=== PATIENT | male | born 1945 | race African-American/Black ===

== ENCOUNTER 2019-08-08 05:03 | Day surgery (SDC) ==
--- NOTE | 2019-08-02 09:08 | EKG Report ---
Test Performed on : 08/02/2019 09:00:56 AM Test Reason : PAT Blood Pressure : / mmHG Vent. Rate : 057 BPM Atrial Rate : 057 BPM P-R Int : 192 ms QRS Dur : 092 ms QT Int : 428 ms P-R-T Axes : 021 -19 002 degrees QTc Int : 416 ms Sinus bradycardia. Left ventricular hypertrophy with repolarization abnormality Abnormal ECG When compared with ECG of 12-MAR-2018 02:19, No significant change was found Confirmed by Gaetano KRUEGER, P.J.M ([id number]) on 08/03/2019 3:09:16 PM
[2019-08-02 09:17] LABS: HEMATOCRIT 44.2 % (42.0-52.0); HEMOGLOBIN 13.5 g/dL (14.0-18.0); MCH 23.4 PG (27-31); MCHC 30.5 g/dL (33-37); MCV 76.5 FL (81-99); MPV 9.2 FL (7.4-10.4); RBC 5.78 XMIL (4.7-6.1); RDW 13.9 % (11.5-14.5); WBC 6.96 X1000 (4.8-10.8)
[2019-08-02 09:59] LABS: AGAP 13; BUN 11 mg/dL (8-22); CALCIUM 9.6 mg/dL (8.8-10.2); CHLORIDE 104 mmol/L (98-107); COSMO 284; ESTIMATED GFR > 60; GLUCOSE 100 mg/dL (70-104); POTASSIUM 3.6 mmol/L (3.5-5.1); SODIUM 143 mmol/L (136-145); TCO2 26 mmol/L (25-35)
[2019-08-08] MEDS ORDERED: KEFZOL 1 GM/D5W 2 GM/100 ML IVPB ONE (05:35)
[2019-08-08] MEDS ORDERED: LR 1,000 ML ONE ×2 (05:35→06:39)
[2019-08-08] MEDS ORDERED: STERILE WATER INJ. ONE (06:29)
[2019-08-08] MEDS ORDERED: ROBINUL ONE ×2 (06:29→07:17)
[2019-08-08] MEDS ORDERED: QUELICIN (DOSE) ONE (06:29)
[2019-08-08] MEDS ORDERED: XYLOCAINE-MPF 2% ONE (06:29)
[2019-08-08] MEDS ORDERED: NORCURON ONE (06:29)
[2019-08-08] MEDS ORDERED: DIPRIVAN 1% ONE (06:30)
[2019-08-08] MEDS ORDERED: FENTANYL ONE (06:31)
[2019-08-08] MEDS ORDERED: MARCAINE 0.25% PF/EPI 1:200,000 ONE (06:39)
[2019-08-08] MEDS ORDERED: DECADRON ONE (07:17)
[2019-08-08] MEDS ORDERED: OFIRMEV 1000 MG/ISOTONIC SOLN 1,000 MG/100 ML BOTTLE ONE (07:17)
[2019-08-08] MEDS ORDERED: ZOFRAN ONE (07:17)
[2019-08-08] MEDS ORDERED: NIMBEX ONE (07:32)
[2019-08-08 08:06] LABS: URINE SOURCE CATH
[2019-08-08 08:10] LABS: BILIRUBIN URINE NEGATIVE (NEGATIVE); BLOOD URINE NEGATIVE (NEGATIVE); COLOR STRAW; GLUCOSE URINE NEGATIVE (NEGATIVE); KETONE URINE NEGATIVE (NEGATIVE); LEUKOCYTES URINE NEGATIVE (NEGATIVE); NITRITE URINE NEGATIVE (NEGATIVE); PH URINE 7.5; PROTEIN URINE NEGATIVE (NEGATIVE); SP GRAVITY URINE 1.011; TURBIDITY URINE CLEAR (CLEAR); UROBILINOGEN URINE NORMAL (NORMAL)
[2019-08-08 08:12] LABS: UR EPITHELIAL CELLS <10 /HPF (<10); URINE BACTERIA NEGATIVE /HPF; URINE RBC <10 /HPF (<10); URINE WBC <10 /HPF (<10)
[2019-08-08] MEDS ORDERED: MANNITOL ONE (10:05)
[2019-08-08] MEDS ORDERED: ALBUMIN 25% ONE (10:27)
[2019-08-08] MEDS ORDERED: NEOSTIGMINE ONE (10:41)
[2019-08-08 11:56] LABS: HEMATOCRIT 39.1 % (42.0-52.0)
[2019-08-08] MEDS ORDERED: MORPHINE IV PRN (12:53)
[2019-08-08] MEDS ORDERED: OXY IR PO PRN (13:00)
[2019-08-08] MEDS ORDERED: PHENERGAN PO PRN (13:00)
[2019-08-08] MEDS ORDERED: BENADRYL LIQUID PO PRN (13:00)
[2019-08-08] MEDS: LR 1,000 ML IV SCH (13:00)
[2019-08-08] MEDS ORDERED: OFIRMEV 1000 MG/ISOTONIC SOLN 1,000 MG/100 ML BOTTLE IV PRN (13:00)
--- NOTE | 2019-08-08 14:54 | OPERATIVE NOTE ---
PROCEDURE DATE: 08/08/2019 SURGEON: Bhanu Ruvalcaba M.D. PREOPERATIVE DIAGNOSIS: Right lower pole renal mass. POSTOPERATIVE DIAGNOSIS: Right lower pole renal mass. PROCEDURE PERFORMED: Laparoscopic robot-assisted right partial nephrectomy and intraoperative ultrasound of the right lower pole kidney. ANESTHESIA: General endotracheal. FINDINGS: Intraoperative ultrasound revealed an approximately 2.5 to 3 cm mixed echogenic mass in the right lower pole kidney, anteromedially located, consistent with the findings on his preoperative CT scan. COMPLICATIONS: The small bowel had a small Bovie burn, less than 3 mm in length. General surgeon reviewed it and placed a 3-0 silk suture, [id number], imbricating the cauterized ends over each other. INDICATION FOR PROCEDURE: This 73-year-old male had abdominal pain. Evaluation revealed a right lower pole renal mass. DESCRIPTION OF PROCEDURE: After informed consent was obtained from the patient and him receiving IV antibiotics, he was taken to the main OR, placed in the supine position. General endotracheal anesthesia was achieved. He was then placed with the right side bumped up to about 30 degrees, and fixed to the table with his left leg flexed at the knee, and the right leg well padded, going over the left leg. The table was flexed to about 15 degrees. A 16-Occitan Knapp catheter was passed through the patient's urethra, prostate, and into the bladder. Then, 10 mL of sterile water was placed in the Knapp's balloon. The efflux was clear. He was then prepped and draped in the usual sterile fashion for right flank and abdominal surgery. An incision was made approximately 4 fingerbreadths above the umbilicus in the midline. Traumatic towel clamps were used to pull up the skin, and a Veress needle was passed through the subcutaneous tissue and fascia, and into the abdomen. It was verified in correct position by the water drop test. Pneumoperitoneum was achieved with CO2 to 15 cm of water pressure. After pneumoperitoneum was achieved, a camera was placed using the [employer]. After the camera was placed, the robot trocars were placed with the #1 arm just below the costal margin in the midclavicular line. The #2 arm was placed in the midclavicular line about 1 handbreadth below the umbilicus. The office clerk assistant port was placed 1 fingerbreadth below the umbilicus, and the fourth arm was placed just above the anterior superior iliac spine. The patient was rotated such that he was about 60 degrees up with the horizon. The robot was docked. The procedure was started by taking down the ascending colon along the white line of Toldt, and reflected medially. It was then that it was noted that the small bowel had a small Bovie burn that was visualized by the general surgeon, and he put 1 single [id number] suture of 3-0 silk over it. The duodenum was Kocherized, and the vena cava was visualized. The renal vein and then the renal artery were visualized, bluntly dissected free, and encircled with vessel loops. The perirenal fat was removed from the lower pole kidney. It was very adherent to the capsule, but was completely dissected away on the anterior, medial, and posterior surface of the kidney. The Alpha 10 ProSound ultrasound machine with the 7.5 megahertz drop-in probe was used to image the lower pole of the kidney that revealed the 2.5 x 3 cm mass in the lower pole kidney. The proposed incision line was cauterized on the capsule of the kidney for 360 degrees. Bulldog clamps were placed first, one on the artery and then one on the vein. Prior to placing the bulldog clamps, the patient received 12.5 grams of mannitol. After the bulldog clamps were placed, the mass was excised from the kidney using the hot jennifer scissors. The mass was placed in an EndoCatch retrieval bag and moved to the side. The base of the tumor bed was closed with a running suture of 3-0 V-Loc. The suture was passed through the capsule of the kidney, and then ran in a simple fashion down to the other end of the wound and then back out of the wound, and a Hem-O-Rom clip was placed on both sides after tension was placed. A second 3-0 V- Loc suture was placed above this to reinforce the closure. The capsule was closed over the defect using interrupted sutures of 0 V-Loc suture. The free end had a clip placed. The suture was passed through the cortex of the kidney on either side of the wound, tension was placed, and another Hem-O-Rom clip was placed. A total of 5 sutures were placed that completely closed the wound. The arterial bulldog was removed, and then the vein bulldog. No significant bleeding was seen. Total ischemic time was 29 minutes. Evicel was placed on top of the wound. The perirenal fat was passed back over the wound and held in place with Hem-O-Rom clips. A 19-Occitan David drain was brought through the fourth arm port in the right lower quadrant. The EndoCatch retrieval bag string was left coming out of the office clerk assistant port. The pneumoperitoneum was released, and the robot trocar was removed under direct vision. The office clerk assistant port incision was extended for a total distance of about 3 cm. The fascia was incised with the electrocautery, and the specimen removed and sent to Pathology. The abdominal rectus fascia was reapproximated with interrupted sutures of #1 Maxon. The camera port fascia was reapproximated with a simple suture of 2-0 Vicryl. The skin was reapproximated with clips. Island dressings were placed. Estimated blood loss was 1000 mL. He tolerated the procedure well, and was taken to the recovery room in good condition. cc: Bhanu Ruvalcaba MD
[2019-08-08] MEDS: KEFZOL 2 GM/D5W 2 GM/50 ML IVPB IV SCH (16:21)
[2019-08-08] MEDS: LABETALOL IV PRN (17:52)
--- NOTE | 2019-08-08 20:01 | OPERATIVE NOTE ---
PROCEDURE DATE: 08/08/2019 PREOP DIAGNOSIS: Cautery injury to duodenum. POSTOP DIAGNOSIS: Cautery injury to duodenum. PROCEDURE: Suture repair of small intestine. SURGEON: Robert Lora MD. ESTIMATED BLOOD LOSS: None. COMPLICATIONS: None apparent. FINDINGS: The patient was seen as an intraoperative consult for Dr. Ruvalcaba. He was performing a nephrectomy robotically and while mobilizing the right colon he recognized a cautery injury to the anterior duodenum. It did not appear to be full thickness. There was no leakage of any bile, but as a matter of precaution, I felt like the patient would benefit from imbricating the serosa over this area to decrease the chance of a duodenal fistula formation. I sat down at the robotic console and using a 3-0 silk placed a [id number] stitch imbricating the seromuscular edges above and below the area. This effectively covered up the area with serosa. We removed the needle and stitch and I then handed the case back over to Dr. Ruvalcaba to complete the nephrectomy. cc: MD Bhanu Jaramillo MD
[2019-08-08] MEDS: COLACE PO SCH (20:50)
[2019-08-08] MEDS: PEPCID PO SCH (20:50)
[2019-08-08] MEDS ORDERED: XALATAN 0.005% OPH SOLN BOTH EYES SCH (21:00)
[2019-08-08] MEDS: OXY IR PO PRN (21:21)
[2019-08-08] MEDS: TIMOPTIC 0.5% OPH SOLUTION BOTH EYES SCH (21:24)
[2019-08-09] MEDS: KEFZOL 2 GM/D5W 2 GM/50 ML IVPB IV SCH (00:52)
[2019-08-09] MEDS: LR 1,000 ML IV SCH ×2 (00:53→10:47)
[2019-08-09 02:11] LABS: CREATININE BODY FLUID 1.1 mg/dL
[2019-08-09 06:55] LABS: HEMATOCRIT 37.4 % (42.0-52.0); HEMOGLOBIN 11.4 g/dL (14.0-18.0); MCH 23.1 PG (27-31); MCHC 30.5 g/dL (33-37); MCV 75.7 FL (81-99); MPV 9.3 FL (7.4-10.4); RBC 4.94 XMIL (4.7-6.1); RDW 13.7 % (11.5-14.5); WBC 12.13 X1000 (4.8-10.8)
[2019-08-09] MEDS: LABETALOL IV PRN (06:55)
[2019-08-09 07:29] LABS: AGAP 13; BUN 12 mg/dL (8-22); CHLORIDE 103 mmol/L (98-107); COSMO 283; CREATININE 1.3 mg/dL (0.7-1.2); ESTIMATED GFR > 60; GLUCOSE 105 mg/dL (70-104); POTASSIUM 3.5 mmol/L (3.5-5.1); SODIUM 142 mmol/L (136-145); TCO2 26 mmol/L (25-35)
[2019-08-09] MEDS: PEPCID PO SCH (08:32)
[2019-08-09] MEDS: COLACE PO SCH (08:32)
[2019-08-09] MEDS: TIMOPTIC 0.5% OPH SOLUTION BOTH EYES SCH (08:34)
[2019-08-09] MEDS ORDERED: NORVASC PO SCH (09:00)
[2019-08-09] MEDS ORDERED: COZAAR PO SCH (09:00)
[2019-08-09] MEDS ORDERED: AVODART PO SCH (09:00)
[2019-08-09] MEDS ORDERED: ASPIRIN EC PO SCH (09:00)
[2019-08-09] MEDS: OXY IR PO PRN (09:16)
[2019-08-09 12:29] VITALS: BP 148/67
== END 2019-08-09 13:57 | disposition home or self-care (01) ==
LOC: 4N 05:03 → OR 05:03
PROVIDERS: ATTEND Urology